=== PATIENT | female | born 1960 | race Caucasian/White ===

== ENCOUNTER 2018-11-24 08:42 | Emergency (ER) | payer MEDICARE ==
[~2018-11-24] VITALS: Ht 172.7 cm; Wt 80.7 kg
[~2018-11-24 08:42] MED LIST: ACET500; CEPH500 PO; CIPR500 PO; CYCL10; ESTROGEN; HYDACE7.5; IBUHYD; IBUP600 PO; LACT10SY PO; LANS30EC; LEVFLO500; MELO7.5; METR250 PO; OXYACE5T; OXYACE5T PO; OXYACE7.5T PO; PANT40; PROM25 PO; PSYL5.85P; RXOXYACE PO; RXPROACE; STOOL SOFTENER; VENL75ER
[2018-11-24 10:42] LABS: BASOPHILS ABSOLUTE AUTO 0.09 K/mm3 (0.00-0.23); BASOPHILS PERCENT AUTO 1 % (0-2); EOSINOPHILS ABSOLUTE AUTO 0.18 K/mm3 (0.00-0.68); EOSINOPHILS PERCENT AUTO 1 % (0-6); Hematocrit 54.4 % (33.0-51.0); Hemoglobin 17.7 g/dL (11.5-16.0); Mean Corpuscular HGB 30.2 pg (26.0-34.0); Mean Corpuscular HGB Conc 32.5 g/dL (31.5-36.5); Mean Corpuscular Volume 93 fL (80-100); Platelet Count 259 K/mm3 (150-400); RDW Coefficient Variation 12.8 % (11.7-14.2); Red Blood Cell Count 5.87 M/mm3 (3.80-5.20); White Blood Cell Count 14.46 K/mm3 (4.00-11.30)
[2018-11-24 10:43] LABS: IMMATURE GRAN ABSOLUTE AUTO 0.04 K/mm3 (0.00-0.10); IMMATURE GRAN PERCENT AUTO 0 % (0-1); LYMPHOCYTES ABSOLUTE AUTO 4.11 K/mm3 (0.84-5.20); LYMPHOCYTES PERCENT AUTO 28 % (21-46); MONOCYTES ABSOLUTE AUTO 0.67 K/mm3 (0.16-1.47); MONOCYTES PERCENT AUTO 5 % (4-13); NEUTROPHILS ABSOLUTE AUTO 9.37 K/mm3 (1.96-9.15); NEUTROPHILS PERCENT AUTO 65 % (41-73)
[2018-11-24] MEDS ORDERED: GABA300 PO (11:01)
[2018-11-24] MEDS ORDERED: LORCET 5-325 M1 EACH PO (11:02)
[2018-11-24] MEDS ORDERED: DIAZ10 PO (11:03)
[2018-11-24] MEDS ORDERED: CYCL10 PO (11:04)
[2018-11-24] MEDS ORDERED: Citalopram HBr10 MG (11:04)
[2018-11-24 11:20] LABS: Alanine Aminotransfer (ALT/SGP 15 U/L (12-78); Albumin/Globulin Ratio 1.2 (0.8-1.8); Alk Phos 44 U/L (50-136); Anion Gap 6 mmol/L (6-16); Aspartate Aminotrans (AST/SGOT 11 U/L (12-37); Bilirubin, Total 0.4 mg/dL (0.1-1.0); Blood Urea Nitrogen 9 mg/dL (8-24); Bun/Creatinine Ratio 15.9 (12.0-20.0); CO2, Blood 25 mmol/L (21-32); Calcium, Blood 8.9 mg/dL (8.5-10.1); Chloride, Blood 108 mmol/L (98-108); Creatinine, Blood 0.57 mg/dL (0.40-1.00); Globulin, Blood 3.4 g/dL (2.2-4.0); Glomerular Filtration Rate >60 (60-); Glucose, Blood 90 mg/dL (70-99); Potassium, Blood 4.4 mmol/L (3.5-5.5); Sodium, Blood 139 mmol/L (136-145); Total Protein, Blood 7.4 g/dL (6.4-8.2)
[2018-11-24] MEDS ORDERED: Augmentin 875-1 EACH PO (11:20)
[2018-11-24] MEDS ORDERED: Acetaminophen-1 EAC1 PO (11:20)
[2018-11-24] MEDS ORDERED: Afrin15 ML (11:20)
== END 2018-11-24 12:15 | disposition home or self-care (01) ==
LOC: ER 08:42
PROVIDERS: Internal Medicine
DX: J01.90 Acute sinusitis, unspecified (principal); J40 Bronchitis, not specified as acute or chronic; F17.200 Nicotine dependence, unspecified, uncomplicated; Z88.1 Allergy status to other antibiotic agents; Z88.8 Allergy status to other drugs, medicaments and biological substances; Z79.899 Other long term (current) drug therapy
CPT/HCPCS: 36415; 71046; 80053; 85025; 99283-25

== ENCOUNTER 2018-12-12 10:00 | Emergency (ER) | payer MEDICARE ==
[~2018-12-12] VITALS: Ht 175.3 cm; Wt 79.4 kg
[~2018-12-12 10:00] MED LIST changes: +Acetaminophen-1 EAC1 PO; +Afrin15 ML; +Augmentin 875-1 EACH PO; +CYCL10 PO; +Citalopram HBr10 MG; +DIAZ10 PO; +GABA300 PO; +LORCET 5-325 M1 EACH PO
[2018-12-12 10:39] LABS: Source, Urine Clean Catch
[2018-12-12 10:41] LABS: Blood, Urine 5+ (Neg); Glucose Qualitative, Urine Neg (Neg); Ketones, Urine 3+ (Neg); Leukocyte Esterase, Urine 3+ (Neg); Nitrite, Urine Neg (Neg); Protein, Urine 4+ (Neg); Urobilinogen, Urine 1+ (Normal); pH, Urine 6.5 (5.0-8.0)
[2018-12-12 10:48] LABS: Appearance, Urine Hazy (Clear); Bilirubin, Urine 1+ (Neg); Color, Urine Amber (P-Yellow)
[2018-12-12 10:50] LABS: Red Blood Cells, Urine 25-50 /hpf (0-2); White Blood Cells, Urine TNTC /hpf (0-5)
[2018-12-12 10:51] LABS: Bacteria Mod /hpf; Squamous Epithelial Cells Not Seen /hpf (Few)
[2018-12-12] MEDS ORDERED: LEVO750 PO (11:26)
[2018-12-12] MEDS ORDERED: Prednisone20 MG PO ×2 (11:26→11:30)
[2018-12-12] MEDS ORDERED: Bactrim Ds Tab1 EACH PO (11:30)
== END 2018-12-12 11:57 | disposition home or self-care (01) ==
LOC: ER 10:00
PROVIDERS: Emergency Medicine
DX: J40 Bronchitis, not specified as acute or chronic (principal); N39.0 Urinary tract infection, site not specified; M19.90 Unspecified osteoarthritis, unspecified site; M41.9 Scoliosis, unspecified; F17.200 Nicotine dependence, unspecified, uncomplicated; Z88.8 Allergy status to other drugs, medicaments and biological substances; Z79.899 Other long term (current) drug therapy
CPT/HCPCS: 71046; 81001; 87086; 94640; 99283-25; J7512

== ENCOUNTER 2019-02-22 08:02 | Emergency (ER) | payer MEDICARE ==
[~2019-02-22] VITALS: Ht 175.3 cm; Wt 79.4 kg
[~2019-02-22 08:02] MED LIST changes: +Aspir 8181 MG PO; +Bactrim Ds Tab1 EACH PO; +LEVO750 PO; +OMEPRAZOLE20 MG PO; +Prednisone20 MG PO
[2019-02-22] MEDS ORDERED: CLIMARA1 EACH (08:22)
[2019-02-22] MEDS ORDERED: Bactrim Ds Tab1 EACH PO (08:38)
[2019-02-22] MEDS ORDERED: Prednisone20 MG PO (08:39)
[2019-02-22] MEDS ORDERED: Nystatin100000 UN1 PO (08:59)
== END 2019-02-22 09:01 | disposition home or self-care (01) ==
LOC: ER 08:02
DX: J44.1 Chronic obstructive pulmonary disease with (acute) exacerbation (principal); F17.200 Nicotine dependence, unspecified, uncomplicated
CPT/HCPCS: 94640; 99283-25; J1100

== ENCOUNTER 2019-03-17 08:08 | Day surgery (SDC) | payer MEDICARE ==
[~2019-03-17 08:08] MED LIST changes: +CLIMARA1 EACH; +Nystatin100000 UN1 PO
[2019-03-17 09:49] LABS: Test Name FNA
== END 2019-03-17 22:46 | disposition home or self-care (01) ==
LOC: US 08:08
PROVIDERS: Nurse Practitioner Family
DX: E04.1 Nontoxic single thyroid nodule (principal); J43.9 Emphysema, unspecified; E55.9 Vitamin D deficiency, unspecified; E78.5 Hyperlipidemia, unspecified; F41.8 Other specified anxiety disorders; M19.90 Unspecified osteoarthritis, unspecified site; K58.9 Irritable bowel syndrome, unspecified; M41.9 Scoliosis, unspecified; F17.210 Nicotine dependence, cigarettes, uncomplicated; M81.0 Age-related osteoporosis without current pathological fracture; Z88.1 Allergy status to other antibiotic agents; Z88.5 Allergy status to narcotic agent; Z88.7 Allergy status to serum and vaccine; Z79.890 Hormone replacement therapy; Z79.899 Other long term (current) drug therapy
CPT/HCPCS: 10005; 36415; 85610; 85730; 86376; 86800

== ENCOUNTER 2019-03-23 23:34 | Inpatient (IN) | payer MEDICARE ==
[~2019-03-23] VITALS: Ht 180.3 cm; Wt 81.5 kg
[2019-03-24 01:06] LABS: BASOPHILS ABSOLUTE AUTO 0.12 K/mm3 (0.00-0.23); BASOPHILS PERCENT AUTO 1 % (0-2); EOSINOPHILS ABSOLUTE AUTO 0.22 K/mm3 (0.00-0.68); EOSINOPHILS PERCENT AUTO 1 % (0-6); Hematocrit 49.5 % (33.0-51.0); Hemoglobin 15.8 g/dL (11.5-16.0); IMMATURE GRAN ABSOLUTE AUTO 0.15 K/mm3 (0.00-0.10); IMMATURE GRAN PERCENT AUTO 1 % (0-1); LYMPHOCYTES ABSOLUTE AUTO 3.22 K/mm3 (0.84-5.20); LYMPHOCYTES PERCENT AUTO 17 % (21-46); MONOCYTES ABSOLUTE AUTO 0.74 K/mm3 (0.16-1.47); MONOCYTES PERCENT AUTO 4 % (4-13); Mean Corpuscular HGB 30.6 pg (26.0-34.0); Mean Corpuscular HGB Conc 31.9 g/dL (31.5-36.5); Mean Corpuscular Volume 96 fL (80-100); Mean Platelet Volume 9.4 fL (9.1-12.4); NEUTROPHILS ABSOLUTE AUTO 14.31 K/mm3 (1.96-9.15); NEUTROPHILS PERCENT AUTO 76 % (41-73); Platelet Count 303 K/mm3 (150-400); RDW Coefficient Variation 14.3 % (11.7-14.2); RDW Standard Deviation 50.3 fL (35.1-46.3); Red Blood Cell Count 5.17 M/mm3 (3.80-5.20); White Blood Cell Count 18.76 K/mm3 (4.00-11.30)
[2019-03-24 01:25] LABS: Alanine Aminotransfer (ALT/SGP 21 U/L (12-78); Albumin, Blood 3.4 g/dL (3.4-5.0); Albumin/Globulin Ratio 0.9 (0.8-1.8); Alk Phos 51 U/L (50-136); Anion Gap 10 mmol/L (6-16); Aspartate Aminotrans (AST/SGOT 9 U/L (12-37); Bilirubin, Total 0.3 mg/dL (0.1-1.0); Blood Urea Nitrogen 10 mg/dL (8-24); Bun/Creatinine Ratio 18.1 (12.0-20.0); CO2, Blood 21 mmol/L (21-32); Calcium, Blood 8.5 mg/dL (8.5-10.1); Chloride, Blood 111 mmol/L (98-108); Creatinine, Blood 0.55 mg/dL (0.40-1.00); Ethanol (Alcohol), Blood, Med 214 mg/dL; Globulin, Blood 3.7 g/dL (2.2-4.0); Glomerular Filtration Rate >60 (60-); Glucose, Blood 138 mg/dL (70-99); Potassium, Blood 4.4 mmol/L (3.5-5.5); Sodium, Blood 142 mmol/L (136-145); Total Protein, Blood 7.1 g/dL (6.4-8.2)
[2019-03-24] MEDS ORDERED: Estradiol2 MG PO (02:33)
--- NOTE | 2019-03-24 03:43 | NUR ---
arrival PT ARRIVED TO UNIT FROM ER VIA GURNEY AT APPROX 0220. PT SLIDE TO BED WITH DRAW SHEET. PATIENT ABLE TO LIFT BOTTOM AND HELP TO REMOVE EXTRA LINENS. PT INC OF BLADDER, CHANGED AND REPOSITIONED. PT STATES SHE IS STILL IN GREAT PAIN. MEDICATED PER EMAR. SENSATION INTACT IN RIGHT LEG, CAN WIGGLE TOES. CAP REFILL <3. PATIENT ORIENTED TO UNIT, CALL LIGHT IN REACH.
--- NOTE | 2019-03-24 05:58 | NUR ---
SHIFT SUMMARY PT NEW ADMIT FOR R TIB/FIB FX. AA0X4 VSS. PT ORIENTED TO ROOM. NEW ORDERS FOR DILAUDID RECEIVED AND PATIENT IS STILL IN PAIN. HER LEG HAS BEEN ELEVATED. SENSATION IS PRESENT IN LEG, CAP REFILL <3. WIGGLES TOES. BASELINE NUMBNESS REPORTED BY PATIENT. NPO SINCE SHE ARRIVED TO UNIT PER ORDERS. WILL CONTINUE TO MONITOR PATIENT FOR PAIN AND ENCOURAGE OTHER NON PHARMACOLOGICAL METHODS AND MEDICATE PER EMAR. PT HAS A LOT OF ANXIETY RELATING TO HER POSSIBLE SURGERY. ABLE TO SIT AND TALK WITH PATIENT TO REASSURE HER
--- NOTE | 2019-03-24 18:50 | NUR ---
SHIFT SUMMARY PT A&OX4, VSS, R TIB FIB FX WITH SPLINT/CINTHYA WRAP, ELEVATED ON 1 PILLOW. PAIN MANAGED WITH 10 MG NORCO AND 1 MG DILAUDID FOR BREAKTHROUGH. JADA PO, DENIES N&V. INCONTINENT WITH ATTENDS ON, VOIDING WELL. BEDREST, REPOSITIONS SELF WELL. PLAN IS NPO MIDNIGHT FOR SURGERY TOMORROW. REPORT PROVIDED TO MALDONADO RAWLS.
[2019-03-25 04:06] LABS: Hematocrit 44.6 % (33.0-51.0); Hemoglobin 14.1 g/dL (11.5-16.0); Mean Corpuscular HGB 30.6 pg (26.0-34.0); Mean Corpuscular HGB Conc 31.6 g/dL (31.5-36.5); Mean Corpuscular Volume 97 fL (80-100); Mean Platelet Volume 9.4 fL (9.1-12.4); Platelet Count 240 K/mm3 (150-400); RDW Coefficient Variation 14.2 % (11.7-14.2); RDW Standard Deviation 51.1 fL (35.1-46.3); Red Blood Cell Count 4.61 M/mm3 (3.80-5.20)
[2019-03-25 04:23] LABS: Anion Gap 3 mmol/L (6-16); Blood Urea Nitrogen 13 mg/dL (8-24); Bun/Creatinine Ratio 24.9 (12.0-20.0); CO2, Blood 26 mmol/L (21-32); Calcium, Blood 8.3 mg/dL (8.5-10.1); Chloride, Blood 109 mmol/L (98-108); Creatinine, Blood 0.52 mg/dL (0.40-1.00); Glomerular Filtration Rate >60 (60-); Glucose, Blood 96 mg/dL (70-99); Sodium, Blood 138 mmol/L (136-145)
--- NOTE | 2019-03-25 07:05 | NUR ---
SHIFT SUMMARY: BEN RESTED VERY LITTLE DURING THE NIGHT. SHE REPORTS FEELING VERY NERVOUS ABOUT HER UPCOMING SURGERY TODAY. SHE TOLERATED A REGULAR DIET WELL UNTIL MIDNIGHT WHEN SHE WAS MADE NPO IN ANTICIPATION OF SURGERY TODAY. SHE REPORTED THAT THE NORCO AND DILAUDID WERE HELPFUL IN KEEPING HER PAIN AT A TOLERABLE LEVEL. SHE WAS EDUCATED ABOUT WHAT TO EXPECT IN THE PRE AND POST OPERATIVE PERIOD WELL SOME OF THE RESOURCES SHE HAS AVAILABLE TO HER. SHE IS NOT HAVING ANY DIFFICULTY URINATING, CHOOSING TO USE THE ATTENDS IN LIEU OF THE BEDPAN. IV TO LEFT HAND PATENT. SHE USES HER CALL LIGHT APPROPRIATELY. SHE IS LYING IN BED WITH HER CALL LIGHT IN REACH.
--- NOTE | 2019-03-25 12:22 | NUR ---
to day surgery via bed
--- NOTE | 2019-03-25 12:41 | NUR ---
PT TRANSFERED TO DAY SURGERY VIA HOSPITAL BED. History, Chart, Medications and Allergies reviewed before start of procedure.Patient confirms NPO status and agrees with scheduled surgery.Expiratory wheezes throughout.
--- NOTE | 2019-03-25 16:14 | NUR ---
return to room. pt reports pain 7/10 to right leg- was recently medicated. right leg immobilizer in place. pt reports bilat numbness and tingling to legs which is normal for her but is currently slightly increased to rle. right foot with mild edema, toes on right slightly more pink than on left
--- NOTE | 2019-03-25 17:42 | NUR ---
SUMMARY PT REPORTS THROBBING PAIN TO RIGHT LEG BUT THAT PAIN IS ADEQUATELY CONTROLLED. ICE IN PLACE TO RIGHT KNEE. SPLINT TO RIGHT LEG. BILAT FEET WARM AND PINK WITH IMMEDIATE CAPILLARY REFILL. RIGHT TOES REMAIN SL DARKER PINK IN COLOR THAN TOES ON LEFT- PT REPORTS NO INCREASE IN NUMBNESS OR TINGLING TO EITHER LEG
--- NOTE | 2019-03-26 04:07 | NUR ---
SHIFT SUMMARY POD 1 R ORIF OF THE TIBIA. HINGED BRACE IN PLACE. CINTHYA WRAP INTACT WITH SMALL AMOUNT OF BLOOD SOAKING THROUGH WITH MOVEMENT. PT UP TO VOID DURING SHIFT. TOLERATED WELL. PAIN MANAGED WITH IV AND ORAL PAIN MEDICATION. PATIENT REFUSED TO CALL WHEN PAIN WAS ESCALATING, EDUCATED PATIENT ON IMPORTANCE OF CALLING BEFORE PAIN IS OUT OF CONTROL AND REASSURED HER SHE WOULD NEVER BE BOTHERING US. PATIENT TOLERATING PO WELL. AND HAS BEEN FOLLOWING PRECAUTIONS.
[2019-03-26 04:27] LABS: BASOPHILS ABSOLUTE AUTO 0.03 K/mm3 (0.00-0.23); BASOPHILS PERCENT AUTO 0 % (0-2); EOSINOPHILS PERCENT AUTO 0 % (0-6); Hematocrit 41.4 % (33.0-51.0); Hemoglobin 13.2 g/dL (11.5-16.0); IMMATURE GRAN ABSOLUTE AUTO 0.07 K/mm3 (0.00-0.10); IMMATURE GRAN PERCENT AUTO 0 % (0-1); LYMPHOCYTES ABSOLUTE AUTO 1.65 K/mm3 (0.84-5.20); LYMPHOCYTES PERCENT AUTO 9 % (21-46); MONOCYTES ABSOLUTE AUTO 1.18 K/mm3 (0.16-1.47); MONOCYTES PERCENT AUTO 6 % (4-13); Mean Corpuscular HGB 30.6 pg (26.0-34.0); Mean Corpuscular HGB Conc 31.9 g/dL (31.5-36.5); Mean Corpuscular Volume 96 fL (80-100); Mean Platelet Volume 9.7 fL (9.1-12.4); NEUTROPHILS ABSOLUTE AUTO 15.48 K/mm3 (1.96-9.15); NEUTROPHILS PERCENT AUTO 84 % (41-73); Platelet Count 238 K/mm3 (150-400); RDW Coefficient Variation 13.5 % (11.7-14.2); RDW Standard Deviation 48.5 fL (35.1-46.3); Red Blood Cell Count 4.31 M/mm3 (3.80-5.20); White Blood Cell Count 18.41 K/mm3 (4.00-11.30)
[2019-03-26 10:32] LABS: Source, Urine Clean Catch
[2019-03-26 10:48] LABS: Bilirubin, Urine Neg (Neg); Blood, Urine 2+ (Neg); Glucose Qualitative, Urine Neg (Neg); Ketones, Urine 1+ (Neg); Leukocyte Esterase, Urine Neg (Neg); Nitrite, Urine Neg (Neg); Protein, Urine 1+ (Neg); Specific Gravity, Urine 1.015 (1.003-1.022); Urobilinogen, Urine 1+ (Normal)
[2019-03-26 10:59] LABS: Appearance, Urine Clear (Clear); Color, Urine Yellow (P-Yellow)
[2019-03-26 11:00] LABS: Bacteria Not Seen /hpf; Red Blood Cells, Urine 0-2 /hpf (0-2); Squamous Epithelial Cells Many /hpf (Few); White Blood Cells, Urine Not Seen /hpf (0-5)
[2019-03-26 11:01] LABS: Other Crystals Mod /hpf
--- NOTE | 2019-03-26 18:09 | NUR ---
SHIFT SUMMARY PATIENT MOVING WELL, NWB R LEG. PATIENT STATES PAIN CONTROLLED WITH PO AND IV PAIN MED. AQUACEL DRESSING D&i. HINGED BRACE IN PLACE. CIRC CHECKS WNL. TOLERATING DIET. VOIDING. FAMILY IN TO SEE TODAY. NO ACUTE CHANGES.
--- NOTE | 2019-03-27 04:12 | NUR ---
SHIFT SUMMARY POD 2 R ORIF AA0X4, VSS. PT HAS BEEN TRANSFERING TO [facility] WITHOUT CALLING, EDUCATED HER ON NEED TO CALL. WITNESSED HER TRANSFERING, SHE FOLLOWS HER PRECAUTIONS. CINTHYA WRAP IS CDI, BRACE IMMOBILIZER IN PLACE. PT TOLERATING PO WELL, VOIDING WELL DURING SHIFT. MEDICATED FOR PAIN PER EMAR, NEEDED BREAKTHROUGH MEDS X1 OF DIL 1MG. PLAN IS TO DISCHARGE TO SNF AT SOME POINT.
[2019-03-27 04:35] LABS: BASOPHILS ABSOLUTE AUTO 0.06 K/mm3 (0.00-0.23); BASOPHILS PERCENT AUTO 0 % (0-2); EOSINOPHILS ABSOLUTE AUTO 0.15 K/mm3 (0.00-0.68); EOSINOPHILS PERCENT AUTO 1 % (0-6); Hematocrit 41.7 % (33.0-51.0); Hemoglobin 12.9 g/dL (11.5-16.0); IMMATURE GRAN PERCENT AUTO 1 % (0-1); LYMPHOCYTES ABSOLUTE AUTO 1.89 K/mm3 (0.84-5.20); LYMPHOCYTES PERCENT AUTO 10 % (21-46); MONOCYTES PERCENT AUTO 4 % (4-13); Mean Corpuscular HGB 30.1 pg (26.0-34.0); Mean Corpuscular HGB Conc 30.9 g/dL (31.5-36.5); Mean Corpuscular Volume 97 fL (80-100); Mean Platelet Volume 10.1 fL (9.1-12.4); NEUTROPHILS ABSOLUTE AUTO 15.78 K/mm3 (1.96-9.15); NEUTROPHILS PERCENT AUTO 85 % (41-73); Platelet Count 244 K/mm3 (150-400); RDW Coefficient Variation 13.7 % (11.7-14.2); RDW Standard Deviation 49.5 fL (35.1-46.3); Red Blood Cell Count 4.28 M/mm3 (3.80-5.20); White Blood Cell Count 18.68 K/mm3 (4.00-11.30)
--- NOTE | 2019-03-27 08:15 | NUR ---
03/27/19 0815 Debra Costello VERIFICATIONS: EDIT CHART.
[2019-03-27] MEDS ORDERED: OMEPRAZOLE20 MG PO (10:54)
[2019-03-27] MEDS ORDERED: GABA300 PO (10:56)
[2019-03-27] MEDS ORDERED: PROM25 PO (10:57)
[2019-03-27] MEDS ORDERED: Vitamin D2000 UNIT PO (10:58)
--- NOTE | 2019-03-27 18:38 | NUR ---
SHIFT SUMMARY PATIENT UP TO CHAIR AND BSC WITH FWW, SBA. CIRC CHECKS TO RLE WNL. PAIN TOLERABLE PER PATIENT WITH PO MEDS. DRESSING CDI. TOLERATING PO. NO ACUTE CHANGES OR C/O. PLAN FOR D/C TO SNF TOMORROW.
[2019-03-28 04:49] LABS: BASOPHILS ABSOLUTE AUTO 0.03 K/mm3 (0.00-0.23); BASOPHILS PERCENT AUTO 0 % (0-2); EOSINOPHILS PERCENT AUTO 1 % (0-6); Hematocrit 39.1 % (33.0-51.0); Hemoglobin 12.5 g/dL (11.5-16.0); IMMATURE GRAN ABSOLUTE AUTO 0.11 K/mm3 (0.00-0.10); IMMATURE GRAN PERCENT AUTO 1 % (0-1); LYMPHOCYTES ABSOLUTE AUTO 1.09 K/mm3 (0.84-5.20); LYMPHOCYTES PERCENT AUTO 6 % (21-46); MONOCYTES ABSOLUTE AUTO 0.88 K/mm3 (0.16-1.47); MONOCYTES PERCENT AUTO 5 % (4-13); Mean Corpuscular HGB 30.5 pg (26.0-34.0); Mean Corpuscular Volume 95 fL (80-100); Mean Platelet Volume 9.7 fL (9.1-12.4); NEUTROPHILS ABSOLUTE AUTO 15.84 K/mm3 (1.96-9.15); NEUTROPHILS PERCENT AUTO 87 % (41-73); Platelet Count 257 K/mm3 (150-400); RDW Coefficient Variation 13.9 % (11.7-14.2); RDW Standard Deviation 49.4 fL (35.1-46.3); White Blood Cell Count 18.15 K/mm3 (4.00-11.30)
--- NOTE | 2019-03-28 05:05 | NUR ---
SHIFT SUMMARY: BEN SLEPT MINIMALLY THIS SHIFT. SHE REPORTED STOMACH UPSET AND INADEQUATE PAIN CONTROL WITH THE USE OF THE NORCO. SHE WAS LYING IN BED TENSED WITH FREQUENT LEG MOVEMENTS AND FACIAL GRIMACE. AFTER ADMINISTRATION OF 1 MG OF DILAUDID, SHE WAS LYING COMFORTABLY IN BED WITH A RELAXED EXPRESSION. SHE REPORTED THAT THE ICE DID HELP WITH PAIN AND SWELLING. SHE REPORTS LOOKING FORWARD TO DISCHARGE TO SNF LATER TODAY. PAIN CONTROL MEASURES WERE DISCUSSED. CAPILLARY REFILL 4 SECONDS IN RIGHT TOES, IMMOBILIZER IN PLACE. SHE IS TOLERATING PO INTAKE WELL, ABLE TO MAKE HER NEEDS KNOWN. IV TO LEFT FOREARM PATENT. SHE IS LYING COMFORTABLY IN BED WITH HER CALL LIGHT IN REACH.
--- NOTE | 2019-03-28 08:32 | NUR ---
ISTRATE HERE TO SEE PT. DISCUSSED PT'S STATUS INCLUDING PAIN MGMT AND BOWEL CARE.
--- NOTE | 2019-03-28 14:10 | NUR ---
PT TO BE GOING TO [facility] REPORT GIVEN TO RUBEN INCLUDING THAT PT REPORTS NOT WANTING ANY FURTHER BOWEL CARE AT THIS TIME. DISCUSSED BOWEL CARE GIVEN WELL PAIN MEDICATION TIMES WELL WHEN ROBAXIN WAS GIVEN EARLIER TODAY. PT HAS BELONGINGS PACKED INCLUDING HER OWN MEDICATIONS AND PHONE. PAPERWORK AND SCRIPT TO BE SENT WITH TRANSPORT. DISCUSSED PT HAVING OWN HOME MEDICATIONS WITH RUBEN WELL.
--- NOTE | 2019-03-28 14:55 | NUR ---
DISCHARGE: PT REPORTS PAIN DOING MUCH BETTER. REPORT BEEN GIVEN TO RUBEN AT [facility] SEE OTHER NOTE. PT OUT BY TRANSPORT. BELONGINGS AND PAPERWORK SENT WITH TRANSPORT/PT. FAMILY AWARE OF DISCHARGE. PT CONT TO REPORT NOT WANTING ANY FURTHER BOWEL CARE.
== END 2019-03-28 14:54 | DRG 493 ==
LOC: ER 23:34 → SURS 23:35
PROVIDERS: Emergency Medicine; Family Medicine; Internal Medicine; Orthopaedic Surgery; ADMIT Internal Medicine
PROC: 0QSG04Z Reposition Right Tibia with Internal Fixation Device, Open Approach (ICD-10-PCS; principal; 2019-03-25 13:00)
DX: S82.141A Displaced bicondylar fracture of right tibia, initial encounter for closed fracture (principal); K57.92 Diverticulitis of intestine, part unspecified, without perforation or abscess without bleeding; Y93.9 Activity, unspecified; Y92.89 Other specified places as the place of occurrence of the external cause; Y99.8 Other external cause status; J44.9 Chronic obstructive pulmonary disease, unspecified; M79.7 Fibromyalgia; F17.210 Nicotine dependence, cigarettes, uncomplicated; F10.120 Alcohol abuse with intoxication, uncomplicated; W18.30XA Fall on same level, unspecified, initial encounter
CPT/HCPCS: 29515; 36415; 71045; 73552; 73590; 73700; 80048; 80053; 81001; 85025; 85027; 93005; 93010; 96374-59; 96375-59; 96376-59; 97110; 97116; 97162; 97165; 97530; 97535; 99285-25; A9270-GY; C1713; C1769; G0480; J0690; J1100; J1170; J1650; J2270; J2405; J2704; J3010; J7030; J7120

== ENCOUNTER 2019-05-06 14:29 | Emergency (ER) | payer MEDICARE ==
[~2019-05-06] VITALS: Ht 175.3 cm; Wt 79.4 kg
[~2019-05-06 14:29] MED LIST changes: +Estradiol2 MG PO; +Vitamin D2000 UNIT PO
== END 2019-05-06 16:46 | disposition home or self-care (01) ==
LOC: ER 14:29
DX: R20.0 Anesthesia of skin (principal); Z88.8 Allergy status to other drugs, medicaments and biological substances; Z88.7 Allergy status to serum and vaccine; Z88.1 Allergy status to other antibiotic agents; Z79.899 Other long term (current) drug therapy; F17.210 Nicotine dependence, cigarettes, uncomplicated
CPT/HCPCS: 93926; 93971; 99284-25

== ENCOUNTER 2020-01-10 12:22 | Emergency (ER) | payer MEDICARE ==
[~2020-01-10] VITALS: Ht 177.8 cm; Wt 74.8 kg
[2020-01-10] MEDS ORDERED: IBUP600 PO (17:49)
== END 2020-01-10 18:01 | disposition home or self-care (01) ==
LOC: ER 12:22
DX: S93.402A Sprain of unspecified ligament of left ankle, initial encounter (principal); S86.812A Strain of other muscle(s) and tendon(s) at lower leg level, left leg, initial encounter; K21.9 Gastro-esophageal reflux disease without esophagitis; F17.210 Nicotine dependence, cigarettes, uncomplicated; Z88.1 Allergy status to other antibiotic agents; Z88.5 Allergy status to narcotic agent; Z88.7 Allergy status to serum and vaccine; Z79.899 Other long term (current) drug therapy; X50.1XXA Overexertion from prolonged static or awkward postures, initial encounter
CPT/HCPCS: 73562-LT; 73590; 73610; 96372-59; 99283-25; J1885

== ENCOUNTER 2020-03-16 11:50 | Emergency (ER) | payer MEDICARE ==
[~2020-03-16] VITALS: Ht 177.8 cm; Wt 70.3 kg
[2020-03-16 12:47] LABS: Source, Urine Clean Catch
[2020-03-16 12:57] LABS: BASOPHILS ABSOLUTE AUTO 0.08 K/mm3 (0.00-0.23); BASOPHILS PERCENT AUTO 1 % (0-2); EOSINOPHILS ABSOLUTE AUTO 0.12 K/mm3 (0.00-0.68); EOSINOPHILS PERCENT AUTO 1 % (0-6); Hematocrit 48.1 % (33.0-51.0); IMMATURE GRAN ABSOLUTE AUTO 0.05 K/mm3 (0.00-0.10); IMMATURE GRAN PERCENT AUTO 0 % (0-1); LYMPHOCYTES ABSOLUTE AUTO 2.85 K/mm3 (0.84-5.20); LYMPHOCYTES PERCENT AUTO 25 % (21-46); MONOCYTES ABSOLUTE AUTO 0.51 K/mm3 (0.16-1.47); MONOCYTES PERCENT AUTO 5 % (4-13); Mean Corpuscular HGB 30.5 pg (26.0-34.0); Mean Corpuscular HGB Conc 33.3 g/dL (31.5-36.5); Mean Corpuscular Volume 92 fL (80-100); Mean Platelet Volume 10.1 fL (9.1-12.4); NEUTROPHILS ABSOLUTE AUTO 7.78 K/mm3 (1.96-9.15); NEUTROPHILS PERCENT AUTO 68 % (41-73); Platelet Count 273 K/mm3 (150-400); Red Blood Cell Count 5.25 M/mm3 (3.80-5.20); White Blood Cell Count 11.39 K/mm3 (4.00-11.30)
[2020-03-16 13:03] LABS: Ethanol (Alcohol), Blood, Med <3 mg/dL; Troponin I <0.015 ng/mL (0.000-0.040)
[2020-03-16 13:08] LABS: Alanine Aminotransfer (ALT/SGP 22 U/L (12-78); Albumin, Blood 3.4 g/dL (3.4-5.0); Albumin/Globulin Ratio 0.9 (0.8-1.8); Alk Phos 59 U/L (50-136); Anion Gap 8 mmol/L (6-16); Aspartate Aminotrans (AST/SGOT 31 U/L (12-37); Bilirubin, Total 0.6 mg/dL (0.1-1.0); Blood Urea Nitrogen 26 mg/dL (8-24); CO2, Blood 20 mmol/L (21-32); Calcium, Blood 8.6 mg/dL (8.5-10.1); Chloride, Blood 110 mmol/L (98-108); Creatinine, Blood 0.57 mg/dL (0.40-1.00); Globulin, Blood 3.6 g/dL (2.2-4.0); Glomerular Filtration Rate >60 (60-); Glucose, Blood 105 mg/dL (70-99); Potassium, Blood 4.7 mmol/L (3.5-5.5); Sodium, Blood 138 mmol/L (136-145)
[2020-03-16 13:15] LABS: Appearance, Urine Clear (Clear); Blood, Urine Neg (Neg); Color, Urine Yellow (P-Yellow); Glucose Qualitative, Urine Neg (Neg); Ketones, Urine 3+ (Neg); Leukocyte Esterase, Urine 1+ (Neg); Nitrite, Urine Neg (Neg); Protein, Urine 1+ (Neg); Specific Gravity, Urine 1.015 (1.003-1.022); Urobilinogen, Urine 1+ (Normal); pH, Urine 6.5 (5.0-8.0)
[2020-03-16 13:29] LABS: U Amphetamine Screen Not Detected; U Barbituate Screen Not Detected; U Benzodiazapine Screen Not Detected; U Buprenorphine Screen Not Detected; U Cannabinoids Screen DETECTED; U Cocaine Screen Not Detected; U Methadone Screen Not Detected; U Methamphetamine Screen Not Detected; U Opiates Screen Not Detected; U Oxycodone Screen Not Detected; U Phencyclidine Screen Not Detected; U Propoxyphene Screen Not Detected
[2020-03-16 13:31] LABS: Bilirubin, Urine 1+ (Neg)
[2020-03-16 13:33] LABS: Bacteria Many /hpf; Red Blood Cells, Urine 0-2 /hpf (0-2); Squamous Epithelial Cells Mod /hpf (Few)
== END 2020-03-16 14:10 | disposition home or self-care (01) ==
LOC: ER 11:50
PROVIDERS: Emergency Medicine
DX: S09.90XA Unspecified injury of head, initial encounter (principal); R42 Dizziness and giddiness; F17.210 Nicotine dependence, cigarettes, uncomplicated; Z88.1 Allergy status to other antibiotic agents; Z88.5 Allergy status to narcotic agent; Z88.7 Allergy status to serum and vaccine; Z79.899 Other long term (current) drug therapy; V49.40XA Driver injured in collision with unspecified motor vehicles in traffic accident, initial encounter; Y92.410 Unspecified street and highway as the place of occurrence of the external cause
CPT/HCPCS: 36415; 70450; 80053; 81001; 84484; 85025; 87086; 93005; 93010; 96374; 99285-25; A9270; G0480; J2405

== ENCOUNTER 2020-06-12 16:47 | Inpatient (IN) | payer MEDICARE ==
[~2020-06-12] VITALS: Ht 177.8 cm; Wt 80.9 kg
[2020-06-12 17:23] LABS: BASOPHILS ABSOLUTE AUTO 0.13 K/mm3 (0.00-0.23); BASOPHILS PERCENT AUTO 1 % (0-2); EOSINOPHILS ABSOLUTE AUTO 0.64 K/mm3 (0.00-0.68); EOSINOPHILS PERCENT AUTO 5 % (0-6); Hematocrit 42.1 % (33.0-51.0); Hemoglobin 14.4 g/dL (11.5-16.0); IMMATURE GRAN PERCENT AUTO 2 % (0-1); LYMPHOCYTES ABSOLUTE AUTO 3.02 K/mm3 (0.84-5.20); LYMPHOCYTES PERCENT AUTO 24 % (21-46); MONOCYTES ABSOLUTE AUTO 0.95 K/mm3 (0.16-1.47); MONOCYTES PERCENT AUTO 7 % (4-13); Mean Corpuscular HGB 30.4 pg (26.0-34.0); Mean Corpuscular HGB Conc 34.2 g/dL (31.5-36.5); Mean Corpuscular Volume 89 fL (80-100); Mean Platelet Volume 9.5 fL (9.1-12.4); NEUTROPHILS ABSOLUTE AUTO 7.82 K/mm3 (1.96-9.15); NEUTROPHILS PERCENT AUTO 61 % (41-73); Platelet Count 285 K/mm3 (150-400); RDW Coefficient Variation 14.4 % (11.7-14.2); RDW Standard Deviation 46.5 fL (35.1-46.3); Red Blood Cell Count 4.73 M/mm3 (3.80-5.20); White Blood Cell Count 12.86 K/mm3 (4.00-11.30)
[2020-06-12 17:39] LABS: International Normalized Ratio 1.08; Prothrombin Time Results 11.5 Sec (9.7-11.5)
[2020-06-12 18:05] LABS: Alanine Aminotransfer (ALT/SGP 81 U/L (12-78); Albumin, Blood 2.3 g/dL (3.4-5.0); Albumin/Globulin Ratio 0.6 (0.8-1.8); Alk Phos 322 U/L (50-136); Anion Gap 4 mmol/L (6-16); Aspartate Aminotrans (AST/SGOT 69 U/L (12-37); Bilirubin, Total 7.2 mg/dL (0.1-1.0); Blood Urea Nitrogen 16 mg/dL (8-24); Bun/Creatinine Ratio 19.9 (12.0-20.0); CO2, Blood 27 mmol/L (21-32); Calcium, Blood 9.1 mg/dL (8.5-10.1); Chloride, Blood 105 mmol/L (98-108); Globulin, Blood 3.8 g/dL (2.2-4.0); Glomerular Filtration Rate >60 (60-); Glucose, Blood 115 mg/dL (70-99); Potassium, Blood 3.4 mmol/L (3.5-5.5); Sodium, Blood 136 mmol/L (136-145); Total Protein, Blood 6.1 g/dL (6.4-8.2)
[2020-06-12 19:54] LABS: Source, Urine Clean Catch
[2020-06-12 19:57] LABS: Appearance, Urine Clear (Clear); Blood, Urine 2+ (Neg); Color, Urine Amber (P-Yellow); Glucose Qualitative, Urine Neg (Neg); Ketones, Urine 1+ (Neg); Leukocyte Esterase, Urine 1+ (Neg); Nitrite, Urine Pos (Neg); Protein, Urine 2+ (Neg); Specific Gravity, Urine 1.015 (1.003-1.022); Urobilinogen, Urine 3+ (Normal)
[2020-06-12 19:59] LABS: Bilirubin, Urine 3+ (Neg)
[2020-06-12 20:07] LABS: Bacteria Many /hpf; Squamous Epithelial Cells Many /hpf (Few)
[2020-06-12] MEDS ORDERED: DIAZEPAM5 M2 PO (21:32)
[2020-06-12] MEDS ORDERED: TRAZ100 PO (21:33)
[2020-06-12] MEDS ORDERED: Hydroxyzine HCl50 MG PO (21:33)
[2020-06-12 22:34] LABS: Troponin I <0.015 ng/mL (0.000-0.040)
[2020-06-13 00:27] LABS: Influenza A, PCR NEGATIVE (NEGATIVE); Influenza B, PCR NEGATIVE (NEGATIVE); Resp Syncytial Virus, PCR NEGATIVE (NEGATIVE); SARS-Cov-2 (COVID-19) PCR, MMC NEGATIVE (NEGATIVE)
[2020-06-13 00:33] LABS: CHOL/HDL RATIO 33.6; Cholesterol 235 mg/dL (50-200); HDL Cholesterol 7 mg/dL (>39); LDL/HDL RATIO 26.5; Low Density Lipoprotein Chol 185 mg/dL (0-110); Triglycerides 214 mg/dL (30-160); Very Low Density Lipoprot Chol 42 mg/dL (6-32)
[2020-06-13 00:34] LABS: CPK Creatine Kinase 11 U/L (26-193); Troponin I <0.015 ng/mL (0.000-0.040)
--- NOTE | 2020-06-13 03:39 | NUR ---
PHYSICIAN COMMUNICATION CONTACTED NUMERICAL CONTROL NESTING OPERATOR PHYSICIAN, DR MUELLER, TO NOTIFY THI THAT THE PATIENT REPORTED HAVING A HEADACHE RATED 8/10 AND DID NOT HAVE ANY PRN PAIN MEDICATION ORDERED FOR IT. DR MUELLER ORDERED 650 MG TYLENOL EVERY 6 HOURS NEEDED.
--- NOTE | 2020-06-13 05:28 | NUR ---
SHIFT SUMMARY PATIENT ARRIVED TO ROOM 342 VIA STRETCHER AT 2345. SHE IS ALERT AND ORIENTED, ABLE TO SELF TRANSFER AND AMBULATED SAFELY ABOUT THE ROOM. SKIN IS SLIGHTLY JAUNDICED. NO OTHER SKIN ISSUES NOTED. PATIENT MEDICATED PER EMAR FOR HEADACHE. IV PATENT AND FLUSHED. BED IN LOWEST POSITION WITH WHEELS LOCKED AND ALARM ON. CALL LIGHT WITHIN REACH. REPORT GIVEN TO ONCOMING RN.
[2020-06-13 06:58] LABS: Hematocrit 37.7 % (33.0-51.0); Hemoglobin 12.7 g/dL (11.5-16.0); Mean Corpuscular HGB 30.2 pg (26.0-34.0); Mean Corpuscular HGB Conc 33.7 g/dL (31.5-36.5); Mean Corpuscular Volume 90 fL (80-100); Mean Platelet Volume 9.3 fL (9.1-12.4); Platelet Count 283 K/mm3 (150-400); RDW Coefficient Variation 14.5 % (11.7-14.2); RDW Standard Deviation 47.5 fL (35.1-46.3); White Blood Cell Count 10.35 K/mm3 (4.00-11.30)
[2020-06-13 07:21] LABS: Alanine Aminotransfer (ALT/SGP 80 U/L (12-78); Albumin/Globulin Ratio 0.6 (0.8-1.8); Alk Phos 288 U/L (50-136); Anion Gap 5 mmol/L (6-16); Aspartate Aminotrans (AST/SGOT 64 U/L (12-37); Bilirubin, Total 5.3 mg/dL (0.1-1.0); Blood Urea Nitrogen 16 mg/dL (8-24); Bun/Creatinine Ratio 26.1 (12.0-20.0); CO2, Blood 25 mmol/L (21-32); CPK Creatine Kinase 11 U/L (26-193); Calcium, Blood 8.3 mg/dL (8.5-10.1); Chloride, Blood 109 mmol/L (98-108); Creatinine, Blood 0.61 mg/dL (0.40-1.00); Globulin, Blood 3.2 g/dL (2.2-4.0); Glomerular Filtration Rate >60 (60-); Glucose, Blood 81 mg/dL (70-99); Potassium, Blood 3.8 mmol/L (3.5-5.5); Sodium, Blood 139 mmol/L (136-145); Total Protein, Blood 5.2 g/dL (6.4-8.2); Troponin I <0.015 ng/mL (0.000-0.040)
[2020-06-13 07:27] LABS: BAND PERCENT MAN 6 % (0-8); BASOPHILS PERCENT MAN 2 % (0-2); EOSINOPHILS ABSOLUTE MAN 0.62 K/mm3 (0.00-0.68); EOSINOPHILS PERCENT MAN 6 % (0-6); LYMPHOCYTES % ATYPICAL MANUAL 2 % (0-0); LYMPHOCYTES PERCENT MAN 29 % (21-46); MONOCYTES ABSOLUTE MAN 0.82 K/mm3 (0.16-1.47); MONOCYTES PERCENT MAN 8 % (4-13); MYELOCYTE PERCENT MAN 1 % (0-0); NEUTROPHILS ABSOLUTE MAN 5.38 K/mm3 (1.96-9.15); SEG NEUTROPHILS PERCENT MAN 46 % (41-73); TOTAL CELLS COUNTED 100
--- NOTE | 2020-06-13 11:02 | NUR ---
Echocardiogram completed.
--- NOTE | 2020-06-13 17:35 | NUR ---
SHIFT SUMMARY- PT IS A/O, PLESANT AND COOPERATIVE HER DIET WAS ADVANCED TODAY AND SHE TOLERATED WELL. SHE IS INDEPENDENT IN THE ROOM. SHE HAD A VISITOR THIS AFTERNOON. SHE SLEPT INTERMITENTLY THROUGHOUT THIS SHIFT. SHE REPORTED HAVING A HEADACHE. MEDICATION WERE ADDED AND GIVEN. HER BED IS IN THE LOW POSTION AND CALL LIGHT IS [employer].
[2020-06-14 05:49] LABS: Alanine Aminotransfer (ALT/SGP 85 U/L (12-78); Albumin/Globulin Ratio 0.6 (0.8-1.8); Alk Phos 313 U/L (50-136); Anion Gap 7 mmol/L (6-16); Aspartate Aminotrans (AST/SGOT 54 U/L (12-37); Bilirubin, Total 3.4 mg/dL (0.1-1.0); Blood Urea Nitrogen 13 mg/dL (8-24); Bun/Creatinine Ratio 25.1 (12.0-20.0); CO2, Blood 25 mmol/L (21-32); Calcium, Blood 8.4 mg/dL (8.5-10.1); Chloride, Blood 107 mmol/L (98-108); Creatinine, Blood 0.52 mg/dL (0.40-1.00); Globulin, Blood 3.5 g/dL (2.2-4.0); Glomerular Filtration Rate >60 (60-); Glucose, Blood 110 mg/dL (70-99); Potassium, Blood 3.8 mmol/L (3.5-5.5); Sodium, Blood 139 mmol/L (136-145); Total Protein, Blood 5.5 g/dL (6.4-8.2)
--- NOTE | 2020-06-14 06:00 | NUR ---
SHIFT SUMMARY- PT. A&O, INDEPENDENT IN ROOM. HAD NO COMPLAINTS OF PAIN OR DISCOMFORT, REPORTED HUPMHREY IMPROVED LAST NIGHT. HAD GOOD APPETITE, SEVERAL SNACKS GIVEN PER PT. REQUEST DURING THE NIGHT. PT. APPEARED TO HAVE SLEPT COMFORTABLY T/O THE SHIFT, NO APPARENT DISTRESS NOTED. VSS. CALL LIGHT WITHIN REACH AND SIDE RAILS UPX2. WILL CONT TO MONITOR.
[2020-06-14] MEDS ORDERED: CEFP200 PO (11:06)
--- NOTE | 2020-06-14 11:40 | NUR ---
PT DISCHARGED FROM UNIT. IV REMOVED. DISCHARGE INSTRUCTIONS REVIEWED. MEDICATIONS FAXED TO [facility] IN [place]. FOLLOW UP APT SCHEDULED. PT LEFT UNIT VIA WHEEL CHAIR. RIDE WAITING.
[2020-06-15 00:07] LABS: HBSAG SCREEN Negative (Negative); HEP A AB, IGM Negative (Negative); HEP B CORE AB, IGM Negative (Negative); HEP C VIRUS AB <0.1 (0.0-0.9)
[2020-06-15 00:07] LABS: HBSAG SCREEN Negative (Negative); HEP B CORE AB, TOT Negative (Negative); HEP C VIRUS AB <0.1 (0.0-0.9)
== END 2020-06-14 12:01 | disposition home or self-care (01) | DRG 689 ==
LOC: ER 16:47 → MEDS 16:48
PROVIDERS: Emergency Medicine; Family Medicine; Physician Assistant; ADMIT Internal Medicine
DX: N12 Tubulo-interstitial nephritis, not specified as acute or chronic (principal); J96.01 Acute respiratory failure with hypoxia; K85.30 Drug induced acute pancreatitis without necrosis or infection; R17 Unspecified jaundice; J98.11 Atelectasis; Z20.822 Contact with and (suspected) exposure to COVID-19; M19.90 Unspecified osteoarthritis, unspecified site; M79.7 Fibromyalgia; K58.9 Irritable bowel syndrome, unspecified; K21.9 Gastro-esophageal reflux disease without esophagitis; M81.0 Age-related osteoporosis without current pathological fracture; F17.210 Nicotine dependence, cigarettes, uncomplicated; E78.5 Hyperlipidemia, unspecified; T37.8X5A Adverse effect of other specified systemic anti-infectives and antiparasitics, initial encounter; G62.9 Polyneuropathy, unspecified; Z90.710 Acquired absence of both cervix and uterus; Z79.899 Other long term (current) drug therapy; Z79.890 Hormone replacement therapy; Z88.1 Allergy status to other antibiotic agents; Z88.8 Allergy status to other drugs, medicaments and biological substances; Z88.7 Allergy status to serum and vaccine
CPT/HCPCS: 0241U; 36415; 71045; 74177; 76705; 80053; 80061; 80074; 81001; 82550; 83690; 83880; 84484; 85025; 85379; 85610; 85730; 86317; 86704; 86708; 86803; 87086; 87340; 93005; 93010; 93306; 96361; 96374; 96375; 99285-25; A9270; J0696; J1650; J1885; J2765; J3010; J7030; Q9967

== ENCOUNTER → 2020-10-28 | Outpatient (CLI) | payer MEDICARE ==
[~2020-10-28] MED LIST changes: +CEFP200 PO; +DIAZEPAM5 M2 PO; +Hydroxyzine HCl50 MG PO; +TRAZ100 PO
== END | disposition home or self-care (01) ==
LOC: LAB 13:00 → LAB SHORT 13:00
DX: N39.0 Urinary tract infection, site not specified (principal)
CPT/HCPCS: 87077; 87086; 87186

== ENCOUNTER 2021-03-24 08:30 | Day surgery (SDC) | payer MEDICARE ==
[~2021-03-24] VITALS: Ht 177.8 cm; Wt 88.0 kg
[~2021-03-24 08:30] MED LIST changes: +ASPI325 PO; +ATOR10 PO; +Celexa20 MG PO; +ESTR2 PO; +VITAMIN D5000 UNIT PO
[2021-03-24] MEDS ORDERED: DIAZ5 PO (09:12)
--- NOTE | 2021-03-24 13:03 | NUR ---
[id number] PATIENT RETURNED FROM THE [facility] WITH LEFT CHEST WALL DRESSING S/P DPPM PLACEMENT. PLACED ON THE MONITOR. C/O PAIN. REPOSITIONED UP IN THE BED. HOB UP AND SIDE RIALS UP X TWO. PAIN MORE TOLERABLE WITH REPOSITIONING. TAKING SIPS OF WATER. S/O AT THE BEDSIDE AND HE IS ASSISTING HER WITH MEAL. CALL LIGHT IN REACH. DRESSING CDI.
--- NOTE | 2021-03-24 15:16 | NUR ---
EKG DONE AT THE BEDSIDE. NO CHEST NOTED.
--- NOTE | 2021-03-24 15:44 | NUR ---
XRAY RESULTS REVIEWED BY DR. WEISS.
--- NOTE | 2021-03-24 15:44 | NUR ---
CLEOCIN 600 MG IVPB STARTED IN THE RECOVERY ROOM ORDERED PRIOR TO DISCHARGE.
--- NOTE | 2021-03-24 15:53 | NUR ---
ANTIBIOTIC COMPLETE. PIV REMOVED. PRESSURE DRESSING APPLIED. ICE PACK TO THE LEFT SHOULDER IN USE. PATIENT UNDERSTAND NOT TO RAISE LEFT ARM ABOVE SHOULDER LEVEL. UP TO THE RESTROOM AND THEN BACK TO THE BEDSIDE. DRESSING SELF AND THEN REVEIWED HER DISCHARGE INSTRUCTIONS, INCLUDING FOLLOW UP APPOINTMENT AND PACER CLINIC APPOINTMENT. PATIENT VERBALIZED UNDERSTANDING AND SIGNED PAPERS. COPIES GIVEN TO THE PATIENT. ALL BELONGINGS GATHERED. RIDE MEETING HER AT THE [facility]. WHEELCHAIRED TO THE [facility]. DISCHARGED HOME AT 1615
== END 2021-03-24 16:23 | disposition home or self-care (01) ==
LOC: MHTC 08:30
DX: I49.5 Sick sinus syndrome (principal); I44.1 Atrioventricular block, second degree; R55 Syncope and collapse; I47.1 Supraventricular tachycardia; I50.32 Chronic diastolic (congestive) heart failure; M79.7 Fibromyalgia; K21.9 Gastro-esophageal reflux disease without esophagitis; E78.5 Hyperlipidemia, unspecified; M81.0 Age-related osteoporosis without current pathological fracture; Z79.82 Long term (current) use of aspirin; Z88.1 Allergy status to other antibiotic agents; Z88.8 Allergy status to other drugs, medicaments and biological substances; Z88.0 Allergy status to penicillin
CPT/HCPCS: 33208; 71046; 93005; 93010; 99152; 99153; A9270; C1769; C1785; C1894; C1898; J1644; J2250; J3010; J3370; J7030; J7040

== ENCOUNTER → 2021-09-15 | Outpatient (CLI) | payer MEDICARE ==
[~2021-09-15] MED LIST changes: +DIAZ5 PO
== END | disposition home or self-care (01) ==
LOC: PLD 07:49 → LAB SHORT 07:49
DX: N90.3 Dysplasia of vulva, unspecified (principal)
CPT/HCPCS: 88305; 88342

== ENCOUNTER 2022-01-31 23:39 | Emergency (ER) | payer MEDICARE ==
[~2022-01-31] VITALS: Ht 175.3 cm; Wt 83.9 kg
[2022-02-01] MEDS ORDERED: OXAYDO5 M1 PO ×2 (05:59→06:47)
[2022-02-01] MEDS ORDERED: IBUP600 PO ×2 (05:59→06:47)
== END 2022-02-01 06:58 | disposition home or self-care (01) ==
LOC: ER 23:39
DX: S82.141A Displaced bicondylar fracture of right tibia, initial encounter for closed fracture (principal); M79.7 Fibromyalgia; K21.9 Gastro-esophageal reflux disease without esophagitis; F17.210 Nicotine dependence, cigarettes, uncomplicated; Z88.1 Allergy status to other antibiotic agents; Z88.0 Allergy status to penicillin; Z88.5 Allergy status to narcotic agent; Z88.7 Allergy status to serum and vaccine; Z88.8 Allergy status to other drugs, medicaments and biological substances; Z79.899 Other long term (current) drug therapy; Z79.82 Long term (current) use of aspirin; W01.0XXA Fall on same level from slipping, tripping and stumbling without subsequent striking against object, initial encounter
CPT/HCPCS: 73562-RT; 73700; A9270

== ENCOUNTER 2022-07-19 15:11 | Emergency (ER) | payer MEDICARE ==
[~2022-07-19] VITALS: Ht 175.3 cm; Wt 83.9 kg
[~2022-07-19 15:11] MED LIST changes: +OXAYDO5 M1 PO
[2022-07-19 15:41] VITALS: BP 137/98
== END 2022-07-19 18:34 | disposition home or self-care (01) ==
LOC: ER 15:11
DX: T81.30XA Disruption of wound, unspecified, initial encounter (principal); M79.7 Fibromyalgia; K21.9 Gastro-esophageal reflux disease without esophagitis; F17.210 Nicotine dependence, cigarettes, uncomplicated; Z88.0 Allergy status to penicillin; Z88.1 Allergy status to other antibiotic agents; Z88.7 Allergy status to serum and vaccine; Z88.8 Allergy status to other drugs, medicaments and biological substances; Z79.82 Long term (current) use of aspirin; Z79.899 Other long term (current) drug therapy; X58.XXXA Exposure to other specified factors, initial encounter
CPT/HCPCS: 99282

== ENCOUNTER → 2023-02-23 | Outpatient (CLI) | payer MEDICARE ==
[2023-02-23 18:02] LABS: BASOPHILS ABSOLUTE AUTO 0.06 K/mm3 (0.00-0.23); BASOPHILS PERCENT AUTO 1 % (0-2); EOSINOPHILS ABSOLUTE AUTO 0.14 K/mm3 (0.00-0.68); EOSINOPHILS PERCENT AUTO 2 % (0-6); Hematocrit 48.5 % (33.0-51.0); Hemoglobin 16.1 g/dL (11.5-16.0); IMMATURE GRAN ABSOLUTE AUTO 0.03 K/mm3 (0.00-0.10); IMMATURE GRAN PERCENT AUTO 0 % (0-1); LYMPHOCYTES ABSOLUTE AUTO 2.56 K/mm3 (0.84-5.20); LYMPHOCYTES PERCENT AUTO 28 % (21-46); MONOCYTES ABSOLUTE AUTO 0.55 K/mm3 (0.16-1.47); MONOCYTES PERCENT AUTO 6 % (4-13); Mean Corpuscular HGB 30.3 pg (26.0-34.0); Mean Corpuscular HGB Conc 33.2 g/dL (31.5-36.5); Mean Corpuscular Volume 91 fL (80-100); Mean Platelet Volume 9.8 fL (9.1-12.4); NEUTROPHILS ABSOLUTE AUTO 5.95 K/mm3 (1.96-9.15); NEUTROPHILS PERCENT AUTO 64 % (41-73); Platelet Count 349 K/mm3 (150-400); RDW Coefficient Variation 13.1 % (11.7-14.2); RDW Standard Deviation 44.2 fL (35.1-46.3); Red Blood Cell Count 5.32 M/mm3 (3.80-5.20); White Blood Cell Count 9.29 K/mm3 (4.00-11.30)
[2023-02-23 18:16] LABS: Albumin, Blood 3.8 g/dL (3.4-5.0); Albumin/Globulin Ratio 1.1 (0.8-1.8); Bilirubin, Total 0.4 mg/dL (0.1-1.0); Bun/Creatinine Ratio 31.1 (12.0-20.0); Calcium, Blood 9.2 mg/dL (8.5-10.1); Creatinine, Blood 0.61 mg/dL (0.40-1.00); Globulin, Blood 3.4 g/dL (2.2-4.0); Potassium, Blood 4.6 mmol/L (3.5-5.5); Total Protein, Blood 7.2 g/dL (6.4-8.2)
== END ==
LOC: LAB SHORT 14:10 → LAB 14:10
PROVIDERS: Family Medicine
DX: R10.9 Unspecified abdominal pain (principal)
CPT/HCPCS: 80053; 83690; 85025

== ENCOUNTER → 2023-06-11 | Outpatient (CLI) | payer MEDICARE | LOC: LAB SHORT 14:09 → LAB 14:09 | DX: D48.5 Neoplasm of uncertain behavior of skin (principal) | CPT/HCPCS: 88312 ==

== ENCOUNTER → 2024-02-17 | Outpatient (CLI) | payer MEDICARE | END | disposition home or self-care (01) | LOC: LAB 12:46 → LAB SHORT 12:46 | DX: K13.0 Diseases of lips (principal) | CPT/HCPCS: 87070; 87075; 87077; 87147; 87186; 87205 ==

== ENCOUNTER 2024-06-14 17:31 | Emergency (ER) | payer OTHER ==
[~2024-06-14] VITALS: Ht 175.3 cm; Wt 83.9 kg
[2024-06-14] MEDS ORDERED: Ondansetron HCl 2 MG / ML 2ML Vial IV ONE (17:50)
[2024-06-14] MEDS ORDERED: FentaNYL Citrate 50 MCG/ML 2 ML Injection IV ONE ×2 (17:50→20:05)
[2024-06-14 18:24] LABS: Albumin, Blood 3.9 g/dL (3.4-5.0); Albumin/Globulin Ratio 1.3 (0.8-1.8); Bilirubin, Total 0.5 mg/dL (0.1-1.0); Bun/Creatinine Ratio 30.5 (12.0-20.0); Calcium, Blood 9.5 mg/dL (8.5-10.1); Creatinine, Blood 0.75 mg/dL (0.40-1.00); Globulin, Blood 2.9 g/dL (2.2-4.0); Potassium, Blood 4.2 mmol/L (3.5-5.5); Total Protein, Blood 6.8 g/dL (6.4-8.2)
[2024-06-14 18:26] LABS: Source, Urine Clean Catch
[2024-06-14 18:31] LABS: Appearance, Urine Clear (Clear); Bilirubin, Urine Neg (Neg); Blood, Urine Neg (Neg); Color, Urine Yellow (P-Yellow); Glucose Qualitative, Urine Neg (Neg); Ketones, Urine 1+ (Neg); Leukocyte Esterase, Urine Neg (Neg); Nitrite, Urine Neg (Neg); Protein, Urine 2+ (Neg); Urobilinogen, Urine NORM (Normal)
[2024-06-14 18:39] LABS: Bacteria Few /hpf; Mucus Light (0-Heavy); Red Blood Cells, Urine Not Seen /hpf (0-2); Squamous Epithelial Cells Mod /hpf (Few); White Blood Cells, Urine 0-2 /hpf (0-5)
[2024-06-14 18:49] LABS: BASOPHILS ABSOLUTE AUTO 0.07 K/mm3 (0.00-0.23); BASOPHILS PERCENT AUTO 1 % (0-2); EOSINOPHILS ABSOLUTE AUTO 0.23 K/mm3 (0.00-0.68); EOSINOPHILS PERCENT AUTO 2 % (0-6); Hematocrit 43.6 % (33.0-51.0); Hemoglobin 14.8 g/dL (11.5-16.0); IMMATURE GRAN ABSOLUTE AUTO 0.03 K/mm3 (0.00-0.10); IMMATURE GRAN PERCENT AUTO 0 % (0-1); LYMPHOCYTES ABSOLUTE AUTO 3.41 K/mm3 (0.84-5.20); LYMPHOCYTES PERCENT AUTO 33 % (21-46); MONOCYTES ABSOLUTE AUTO 0.72 K/mm3 (0.16-1.47); MONOCYTES PERCENT AUTO 7 % (4-13); Mean Corpuscular HGB 30.6 pg (26.0-34.0); Mean Corpuscular HGB Conc 33.9 g/dL (31.5-36.5); Mean Corpuscular Volume 90 fL (80-100); NEUTROPHILS ABSOLUTE AUTO 5.97 K/mm3 (1.96-9.15); NEUTROPHILS PERCENT AUTO 57 % (41-73); RDW Coefficient Variation 13.7 % (11.7-14.2); RDW Standard Deviation 45.4 fL (35.1-46.3); Red Blood Cell Count 4.84 M/mm3 (3.80-5.20); White Blood Cell Count 10.43 K/mm3 (4.00-11.30)
[2024-06-14 19:09] LABS: Platelet Count 381 K/mm3 (150-400)
[2024-06-14] MEDS ORDERED: LIDO700A20 TOP (20:44)
[2024-06-14] MEDS ORDERED: CYCL10 PO (20:53)
[2024-06-14 21:16] VITALS: BP 104/59
== END 2024-06-14 21:10 | disposition other institution (70) ==
LOC: ER 17:31
PROVIDERS: Emergency Medicine
DX: R10.9 Unspecified abdominal pain (principal); M51.369 Other intervertebral disc degeneration, lumbar region without mention of lumbar back pain or lower extremity pain; K21.9 Gastro-esophageal reflux disease without esophagitis; M81.0 Age-related osteoporosis without current pathological fracture; M41.9 Scoliosis, unspecified; F17.210 Nicotine dependence, cigarettes, uncomplicated; Z88.0 Allergy status to penicillin; Z88.1 Allergy status to other antibiotic agents; Z88.8 Allergy status to other drugs, medicaments and biological substances; Z88.7 Allergy status to serum and vaccine; Z79.82 Long term (current) use of aspirin; Z79.899 Other long term (current) drug therapy
CPT/HCPCS: 74177; 80053; 81001; 83690; 85025; 96374-59; 96375; 96376; 99284-25; J2405; J3010; Q9967

== ENCOUNTER → 2025-01-14 | Outpatient (CLI) | payer OTHER ==
[~2025-01-14] MED LIST changes: +DIAZ2 PO; +LIDO700A20 TOP
== END ==
LOC: LAB SHORT 14:26 → LAB 14:26
DX: J02.9 Acute pharyngitis, unspecified (principal)
CPT/HCPCS: 87081